=== PATIENT | female | born 1975 | race Two or more races ===

== ENCOUNTER 2025-02-14 21:43 | Emergency (ER) | payer MEDICAID, SELFPAY ==
--- NOTE | 2025-02-14 21:59 | XR_ITS ---
Examination: CTA carotids with intravenous contrast CTA brain, head with intravenous contrast. 2-D sagittal, coronal reconstructions. 3-D reconstructions. Exam date and time: February 14, 2025 1008 hrs. CTDI: vol (mGy) 11.4 DLP: (mGycm) 404 Technique: Multiple CTA axial brain, head carotid images post intravenous contrast injection 75 cc, [id number]. 2-D sagittal, coronal reconstructions. 3-D reconstructions, 3-D post processing including vascular maximum intensity projection images. Low dose protocols were performed. One or more of the following dose reduction techniques were used; automated exposure control, adjustment of the mA and/or KV according to patient size, use of iterative reconstruction technique. Findings: Multiple nodular densities in the upper lung zones, the largest in the left upper lobe is 6 mm and in the right upper lobe 8 mm No significant common carotid carotid bifurcation or internal carotid artery stenoses Mildly dominant left vertebral artery in the neck Intracranial vertebral arteries basilar artery and posterior cerebral branches do fill with no occlusions Mild calcification left juxtasellar internal carotid artery M1 segments middle cerebral arteries middle cerebral artery trifurcation vessels and anterior cerebral arteries fill Impression: No significant neck arterial stenoses No cerebral large vessel arterial occlusions Multiple nodules in the upper lung zones bilaterally, strongly recommend brain MRI MRA follow-up pre and postcontrast follow-up not only to exclude ischemic change but to exclude early cerebral metastatic disease, especially in the left temporal lobe
--- NOTE | 2025-02-14 21:59 | XR_ITS ---
Examination: AP chest single view Technique: AP portable semiupright chest single view Date and time: February 14, 2025, 1043 hrs. Indications: Stroke alert, focal neurologic deficit today Findings: Multiple soft nodular densities in the left lung, the largest in the left lower lobe 7.46 mm No aspiration pneumonia Prominent osteopenia Impression: Suspicious for multiple small nodules in the left lung, consider CT chest abdomen pelvis post contrast follow-up to assess for neoplastic disease
--- NOTE | 2025-02-14 21:59 | XR_ITS ---
Examination: CT brain head without contrast. 2-D sagittal coronal reconstructions Date and time of exam:February 14, 2025 1003 hrs. Indications: Headache today, history CVA CTDI: vol (mGy):49 DLP: (mGycm):925 Technique: Multiple CT axial sections of the brain have been obtained, 5 mm slice thickness. Contrast has not been administered. 2-D sagittal, coronal reconstructions have been obtained Low dose protocols were performed. One or more of the following dose reduction techniques were used; automated exposure control, adjustment of the mA and/or KV according to patient size, use of iterative reconstruction technique. Findings: No significant ventricular enlargement. Intra-axial or extra-axial hemorrhage density is not seen. No mass effect or midline shift Basal cisterns are not remarkable. Fourth ventricle is midline. Cranial vault intact. Impression: Negative for acute hemorrhage, mass effect or midline shift
--- NOTE | 2025-02-14 21:59 | EKG_ITS ---
[facility] Test Date: 2025-02-14 Pat Name: SCOTT KUHN Department: Room: - Gender: Female Manager Mobile: : 1975 Requested By: Eber Alvarado Order Number: [id number] Reading MD: Eber Alvarado Measurements Intervals [place] Rate: 85 P: 54 IA: 154 QRS: 76 QRSD: 97 T: 15 QT: 382 QTc: 454 Interpretive Statements SINUS RHYTHM POSSIBLE INFERIOR MYOCARDIAL INFARCTION , PROBABLY OLD [30 ms Q WAVE IN II/aVF] No previous ECG available for comparison /store/S0/[id number]/ecg/[id number].pdf
[2025-02-14 22:00] VITALS: BP 164/85; PULSE 67; RESP 18; TEMP 37.2; O2SAT 96
--- NOTE | 2025-02-14 22:00 | EDNOTE_ITS ---
ED Headache RME/HPI General Chief Complaint: Headache Stated Complaint: HEADACHE Time Seen by Provider: 02/14/25 22:00 Source: patient and family Arrival date/time: 02/14/25 21:43 Mode of arrival: ambulatory RME / HPI RME / HPI Narrative: Ms. Cowan is a 49-year-old female with past medical history of prediabetes who presented to [facility] who presented to [facility] emergency department with a chief complaint of double vision and left face numbness. Patient reported that she started having headaches about a week ago along with some swelling of her left side of her face with numbness and currently reports pain on the left side, otherwise also complains of emesis and facial pain reports it to be a sharp pain in her head. Earlier this morning complains of exacerbation of symptoms with double vision or loss of vision in her left eye. Stroke alert initiated in the ED Related Data Previous Rx's ?Medication ?Instructions ?Recorded Hydrocodone/Acetaminophen * (NORCO 1 tab PO Q4H PRN pa in #30 tabs 09/02/14 5/325 *) Allergies Allergy/AdvReac Type Severity Reaction Status Date / Time No Known Allergies Allergy Verified 02/14/25 21:44 Review of Systems Review of Systems Systems Reviewed: All systems reviewed, normal except as documented Past Medical History Past Medical History Comments PMH COMMENT: PMH: Positive for Prediabetes PSHx: None Allergies: NKDFA Social history: -Smoking: Denies -Alcohol Use: Denies -Illicit Drug Use: Denies Family History: No significant Family History ED Exam Narrative Physical exam: Physical Exam General: Awake and in no acute distress. Conversational and non-toxic appearing. HEENT: Normocephalic, atraumatic, mucous membranes moist. PERRLA Heart: Regular rate and rhythm, no murmurs. Lungs: Clear to auscultation with no wheezing or crackles. Abdomen: Soft, obese, nondistended, nontender, positive bowel sounds. ?No guarding or rebound tenderness. Neurologic: Alert and oriented x2, facial numbness, able to move all 4 extremities Extremities: No edema. Skin: No rash or ecchymoses. Course Quality Measures Suspected type of Stroke: Hemmorrhagic Last known well (date): 02/07/25 Tenecteplase given: Reason(s) TPA not given: Symptoms suggest SAH not given stroke Orders Category Date Time Status Bedside Blood Glucose NOW Care 02/14/25 21:59 Active Market Gardener NOW Care 02/14/25 21:59 Active Continuous Pulse Oximetry NOW Care 02/14/25 21:59 Completed EKG (ED ONLY) *Do not use* NOW Care 02/14/25 21:59 Completed HOB Elevated .PRN Care 02/14/25 22:24 Active In and Out Catheter NEEDED Care 02/14/25 21:59 Active Insert IV NOW Care 02/14/25 21:59 Active NIH Stroke Scale now Care 02/14/25 21:59 Active NPO NOW Care 02/14/25 21:59 Active NPO NOW Care 02/14/25 22:25 Active Neuro Check Q1HR Care 02/14/25 21:59 Active Nurse Swallow Screen x1 Care 02/14/25 21:59 Active Seizure precautions NOW Care 02/14/25 22:25 Active Consult to Neurology / Tele-Neurology Routine Cons 02/14/25 21:59 Active Diet NPO (NOW) Diet 02/14/25 22:[address] angio stroke protocol Stat Exams 02/14/25 21:[address] stroke protocol Stat Exams 02/14/25 21:59 Completed EKG (ED Only) Stat Exams 02/14/25 21:59 Draft XR chest 1V portable Stat Exams 02/14/25 21:59 Taken Alcohol, Blood Medical Stat Lab 02/14/25 21:55 Completed B-Type Natriuretic Peptide Stat Lab 02/14/25 21:55 Completed C-Reactive Protein Stat Lab 02/14/25 21:55 Completed CBC Stat Lab 02/14/25 21:55 Completed CK [Creatine Kinase] Stat Lab 02/14/25 21:55 Completed Comprehensive Metabolic Panel Stat Lab 02/14/25 21:55 Completed Drug Screen,Urine Stat Lab 02/14/25 22:20 Completed ESR [Sed Rate (ESR)] Stat Lab 02/14/25 21:55 Completed HCG Titer if Positive Stat Lab 02/14/25 21:55 Completed Lactate (Lactic Acid) Stat Lab 02/14/25 21:55 Completed Magnesium Stat Lab 02/14/25 21:55 Completed Partial Thromboplastin Time Stat Lab 02/14/25 21:55 Completed Phosphorous Stat Lab 02/14/25 21:55 Completed Procalcitonin Stat Lab 02/14/25 21:55 Completed Prothrombin Time with INR Stat Lab 02/14/25 21:55 Completed Troponin I Stat Lab 02/14/25 21:55 Completed Urinalysis, C/S if Indicated Stat Lab 02/14/25 22:20 Completed Nicardipine/Ns 20Mg Ivpb [Cardene Ivpb] Med 02/14/25 22:22 Active 20 mg in 200 ml IV 5 mg/hr Ondansetron Inj [Zofran Inj] Med 02/14/25 21:58 Active 4 mg IVP Q4HR PRN levETIRAcetam INJ [Keppra Inj] Med 02/14/25 22:28 Discontinued 1,000 mg IVP X1 ONE Oxygen Delivery NOW RT 02/14/25 21:59 Active Vital Signs Vital signs: Vital Signs Pulse Rate 67 02/14/25 22:00 Respiratory Rate 18 02/14/25 22:00 Blood Pressure 164/85 H 02/14/25 22:00 Headache MDM Narrative MDM Narrative:: #Hemorrhagic CVA 49-year-old female with prior past medical history of prediabetes presented with headache double vision and left-sided facial weakness Stroke alert called CT scan of head reviewed by teleneurology, there is concern of left temporal hemorrhage Initial review of CT head by radiology was negative, radiology read reviewed the imaging is able to visualize Possible 5 mm hemorrhage in the left temporal lobe Patient started on nicardipine drip for SBP goal 140, loading dose Keppra given and Zofran as needed for nausea vomiting Head of bed 30 degrees, neurochecks every 1 hour and maintain fingerstick 140- 160 As neurosurgery is not available at the facility, patient will be transferred to higher level of care with neurosurgery and neurosurgical ICU Pending workup otherwise CBC CMP chest x-ray urine analysis ordered 2255: Case discussed with [facility], connected to Dr. Gamboa Me neurosurgeon [facility], discussed with him the possibility of hemorrhagic CVA versus tumor on CT as documented by radiology and neurology and the need of MRI to exclude tumor, Dr. Gamboa accepted the patient for him patient will definitely need MRI to rule out a tumor to ensure the patient receives appropriate services at the facility. Patient accepted by [facility]. Case discussed with Attending Physician Dr. Sammie Alvarado MD Internal Medicine PGY-2 Disclaimer: This note was dictated by speech recognition. Minor errors in fire medic may be present due to voice recognition software. Patient data External records reviewed:: [facility] previous records and None Clinical information provided by:: patient and family Social determinants that could affect healthcare access:: none Patient has the following chronic illnesses:: Prediabetes How is presenting disease/condition affected by chronic disease/condition?: uneffected by Evaluation data The following diagnostics were reviewed and interpreted by me:: lab results, radiology exam(s) and EKG tracing(s) Lab and/or radiology exams considered but not ordered:: None Interpretation Summary: EKG shows Sinus Rhythm Rate 85 CT Head subtle low-density in the left temporal lobe with possible 5 mm hemorrhage Medications / Prescriptions Medications or Prescriptions considered but not ordered:: None Medication administrations:: Medication Administration History Nicardipine/Sodium Chloride (Cardene Ivpb) 20 mg in 200 mls @ 50 mls/hr IV .Q4H PRN; Protocol PRN Reason: PER PROTOCOL Stop: 03/16/25 22:21 Last Titration: 02/14/25 22:55 Dose: 8 mg/hr, 80 mls/hr Documented By: Titration: 02/14/25 22:50 Dose: 5.5 mg/hr, 55 mls/hr Documented By: [email or web address] Titration: 02/14/25 22:45 Dose: 3 mg/hr, 30 mls/hr Documented By: [email or web address] Titration: 02/14/25 22:40 Dose: 10 mg/hr, 100 mls/hr Documented By: [email or web address] Titration: 02/14/25 22:35 Dose: 7.5 mg/hr, 75 mls/hr Documented By: [email or web address] Admin: 02/14/25 22:30 Dose: 5 mg/hr, 50 mls/hr Documented By: [email or web address] Ondansetron HCl (Ondansetron Inj 2 Mg/Ml Inj 2 Ml) 4 mg IVP Q4HR PRN PRN Reason: NAUSEA OR VOMITING Stop: 03/16/25 21:57 Last Admin: 02/14/25 22:29 Dose: 4 mg Documented By: BETTINA Discontinued Medications Levetiracetam (Levetiracetam Inj 100 Mg/Ml Vial 5ml) 1,000 mg IVP X1 ONE Stop: 02/14/25 22:29 Last Admin: 02/14/25 22:47 Dose: 1,000 mg Documented By: BETTINA As Above Consultations Consultation(s) initiated? (list below): Yes Consultation #1 (Physician, Specialty, Details): Teleneurology, Stroke Alert Diagnosis Differential diagnosis headache: subarachnoid hemorrhage and headache Most likely diagnosis given after review of the tests above:: Hemorrhagic CVA Admission Indicated Admission indicated?: not indicated Admission Request Was there a request for admission?: No Disposition Plan Disposition Plan: Transfer Discharge Plan Prescriptions/Referrals Prescriptions/Med Rec: No Action Hydrocodone/Acetaminophen * (NORCO 5/325 *) 1 TAB tablet 1 tab PO Q4H PRN (Reason: pain) Qty: 30 0RF Problem List Clinical Impression: Cerebrovascular accident, hemorrhagic Patient/Caregiver Discharge Instructions Print Language: Barbadian
--- NOTE | 2025-02-14 22:06 | ESCONSULT_ITS ---
Tele Neuro Consultation Consultation Date 02/14/25 Consultation Narrative [facility] Tele[facility] Patient Name:???Tiff Cowan Date of :???1975 Identification Number:??? Date of Service:???02/14/2025 21:51:19 Diagnosis:?I61.9 - Intracerebral haemorrhage, unspecified Impression: 49F presents with headache and double vision and left face numbness and now trouble getting out her words with double vision.HCT shows a possible left temporal lobe edema and small area of possible hemorrhage (radiology read was normal though, ED MD to discuss with radiology). Rec MRI brain wwo to eval for possible subacute CVA vs tumor and CT C/A/P w to eval for primary tumor. Not a thrombolytic candidate 2/2 concern for ICH. ICH doesn't appear aneurysmal/vessel related but emergent vessel imaging pending (please f/u radiology read and contact NSG or Neuro IR with results). Not a thrombolytic candidate 2/2 ICH. Rec toxic metabolic infectious workup (U/A, COVID, chest xray, and UDS etc as per ED MD/primary team discretion), rec admission for ICH workup. SBP < 140/90, NSG consult, load of Keppra 1000 mg IV and then 500 mg bid. Repeat HCT in 24 hrs unless clinically worsens (repeat stat). Opiates +/- migraine cocktail which had steroid for headache. For neuropathic pains rec gabapentin 300 mg qhs and 100 mg tid prn. Recommendation: Laboratory Studies:? INR/PT ? aPTT? CBC Medications:? Hold?antiplatelet?therapy/NSAIDS/Anticoagulation ? Load with Keppra 1gm now. ? Keppra 500mg bid. Nursing Recommendations: ? Telemetry, IV Fluids?Avoid dextrose containing fluids, Maintain euglycemia ? Head of bed 30 degrees ? Neuro checks q1-2?hrs?during ICU stay ? Once stable neuro checks q4?hrs ? keep BP less than 140/90's with goal of 130/80s Consultations: ? Need Neurosurgery consultation?STAT ? Recommend Speech therapy if failed dysphagia screen ? Physical therapy/Occupational therapy DVT Prophylaxis: ? SCDs Disposition: ? Neurology will Follow Metrics: Last Known Well: Unknown Dispatch Time: 02/14/2025 21:51:19 Arrival Time: 02/14/2025 22:04:19 Initial Response Time: 02/14/2025 21:52:11Symptoms: headache and double vision and left face numbness and now trouble getting out her words. Initial patient interaction: 02/14/2025 21:50:00 NIHSS Assessment Completed: 02/14/2025 21:59:58Patient is not a candidate for Thrombolytic. Thrombolytic Medical Decision: 02/14/2025 22:00:00Patient was not deemed candidate for Thrombolytic because of following reasons: LKW outside 4.5 hr window. . Current intracranial hemorrhage . CT Head: I personally reviewed all the CT images that were available to me and it showed: left temporal vasogenic edema and small area of possible hemorrhage Primary Provider Notified of Diagnostic Impression and Management Plan on: 02/14/2025 22:19:31 History of Present Illness:Patient is a 49 year old Female. Patient was brought by private transportation with symptoms of headache and double vision and left face numbness and now trouble getting out her words. 49F presents with headache and double vision and left face numbness and now trouble getting out her words with double vision. Per daughter, has had 1 week of headaches and had 'swelling of the left face last week and then had numbness of the left face and now pain in the left. Has been having emesis and pain worsens in the left face with en laying down. Has severe sharp pain. Numbness started and last 3 days worse, Now today on the left has double vision or can't see at all. Past Medical History: ?Migraine Headaches ?There is no history of Stroke ?There is no history of Seizures Other PMH:? chronic headaches Medications: No Anticoagulant use? No Antiplatelet use Reviewed EMR for current medications Allergies:? Reviewed Social History: Smoking: No Alcohol Use: No Drug Use: No Family History: There is no family history of premature cerebrovascular disease pertinent to this consultation ROS : 14 Points Review of Systems was performed and was negative except mentioned in HPI. Past Surgical History: There Is No Surgical History Contributory To Today?s Visit Examination: BP(164/85),?Pulse(67),?Blood Glucose(128) 1A: Level of Consciousness - Alert; keenly responsive?+ 0 1B: Ask Month and Age - Both Questions Right?+ 0 1C: Blink Eyes & Squeeze Hands - Performs Both Tasks?+ 0 2: Test Horizontal Extraocular Movements - Partial Gaze Palsy: Can Be Overcome?+ 1 3: Test Visual Condon - No Visual Loss?+ 0 4: Test Facial Palsy (Use Grimace if Obtunded) - Normal symmetry?+ 0 5A: Test Left Arm Motor Drift - No Drift for 10 Seconds?+ 0 5B: Test Right Arm Motor Drift - No Drift for 10 Seconds?+ 0 6A: Test Left Leg Motor Drift - No Drift for 5 Seconds?+ 0 6B: Test Right Leg Motor Drift - No Drift for 5 Seconds?+ 0 7: Test Limb Ataxia (FNF/Heel-Francis) - No Ataxia?+ 0 8: Test Sensation - Normal; No sensory loss?+ 0 9: Test Language/Aphasia - Normal; No aphasia?+ 0 10: Test Dysarthria - Normal?+ 0 11: Test Extinction/Inattention - No abnormality?+ 0 NIHSS Score:?1 ICH Score: 0 NIHSS Text :?dysconjugate gaze Maryjane Coma Score:13-15 (0) Age >= 80:No (0) ICH volume >= 30mL:No (0) Intraventricular hemorrhage:No (0) Infratentorial origin of hemorrhage:No (0) Pre-Morbid Modified Hernandez Scale: 0 Points = No symptoms at all This consult was conducted in real time using interactive audio and video technology. Patient was informed of the technology being used for this visit and agreed to proceed. Patient located in hospital and provider located at home/office setting. Due to the immediate potential for life-threatening deterioration due to underlying acute neurologic illness, I spent 30 minutes providing critical care. This time includes time for face to face visit via telemedicine, review of medical records, imaging studies and discussion of findings with providers, the patient and/or family. Dr Sarah Cote [facility] For Inpatient follow-up with [facility] physician please call [facility] at . As we are not an outpatient service for any post hospital discharge needs please contact the hospital for assistance. If you have any questions for the [facility] physicians or need to reconsult for clinical or diagnostic changes please contact us via [facility] at . Signature :Carmenza Cote
[2025-02-14 22:13] LABS: Lactate (Lactic Acid) 1.2 mMol/L (0.4-2.0)
[2025-02-14 22:20] LABS: Basophils # (Auto) 0.1 Thou/mm3 (0.0-0.2); Basophils % (Auto) 1 % (0-2.5); Eosinophils # (Auto) 0.1 Thou/mm3 (0.0-0.5); Eosinophils % (Auto) 1 % (0-10); Hematocrit 40.8 % (36.0-46.0); Hemoglobin 13.6 g/dL (12.0-16.0); Immature Granulocytes Auto 0.05 Thou/mm3 (0.00-0.00); Lymphocytes # (Auto) 2.6 Thou/mm3 (1.0-4.8); Lymphocytes % (Auto) 19 % (10-50); Mean Corpuscular HGB Conc 33.3 g/dl (31.0-37.0); Mean Corpuscular Hemoglobin 30.0 pg (25.0-35.0); Mean Corpuscular Volume 90 fL (80-100); Monocytes # (Auto) 1.0 Thou/mm3 (0.0-0.8); Monocytes % (Auto) 7 % (0-12); Neutrophils # (Auto) 9.9 Thou/mm3 (1.8-7.7); Neutrophils % (Auto) 72 % (37-80); Nucleated Red Blood Cell # 0.00 Thou/mm3 (0.00-0.00); Nucleated Red Blood Cell % 0 /100 WBC (0); Platelet Count 383 Thou/mm3 (140-440); RDW Standard Deviation 42.5 fL (36.4-46.3); Red Blood Count 4.53 Miln/mm3 (4.00-5.20); White Blood Count 13.8 Thou/mm3 (3.6-11.0)
[2025-02-14 22:28] LABS: Collection Type, Urine Clean Catch
[2025-02-14] MEDS: ONDANSETRON INJ 2 MG/ML INJ 2 ML 4 MG IVP (22:29)
[2025-02-14 22:30] VITALS: BP 156/87; PULSE 79
[2025-02-14 22:30] LABS: HCG Titer if Positive Negative
[2025-02-14] MEDS: NICARDIPINE/NS 20MG IVPB 20 MG/200 ML BAG 50 MG IV (22:30)
[2025-02-14 22:34] VITALS: BMI 31.1
[2025-02-14 22:35] LABS: INR 1.0 (0.9-1.3); Partial Thromboplastin Time 25.1 Seconds (22.0-36.0); Prothrombin Time 11.0 Seconds (9.0-12.2)
[2025-02-14 22:36] LABS: Sed Rate (ESR) 60 mm/hr (0-30)
[2025-02-14 22:36] LABS: Bilirubin,Urine Negative (Negative); Blood,Urine Negative (Negative); Clarity,Urine Clear (Clear/Hazy); Color,Urine Colorless (Lt Yel-Yel); Culture Indicated,Urine Not Indicated; Glucose, Urine Negative (Negative); Ketones,Urine Negative (Negative); Leukocyte Esterase,Urine Negative (Negative); Nitrite,Urine Negative (Negative); PH,Urine 6.5 (5.0-7.0); Protein,Urine Negative (Neg - Trace); RBC,Urine 1 /hpf (0-3); Specific Gravity,Urine 1.026 (1.001-1.035); Squamous Epithelial Cell,Urine 2 /hpf (0-5); Urobilinogen,Urine Negative mg/dL (0.0-1.0); WBC,Urine 3 /hpf (0-5)
[2025-02-14 22:38] LABS: B-Type Natriuretic Peptide 46 pg/mL (0-100)
[2025-02-14 22:43] LABS: Amphetamine/Methamp Scrn,U Negative (Negative); Barbiturate Screen,Urine Negative (Negative); Benzodiazepines Screen,Urine Negative (Negative); Benzoylecgonine Screen, Ur Negative (Negative); Fentanyl Screen,Urine Negative (Negative); Opiate Screen,Urine Negative (Negative); THC Screen,Urine Negative (Negative)
[2025-02-14] MEDS: levETIRAcetam INJ 100 MG/ML VIAL 5ML 1000 MG IVP (22:47)
[2025-02-14 22:53] LABS: Alanine Aminotransferase 44 U/L (10-49); Albumin, Serum 4.6 gm/dL (3.5-5.0); Albumin/Globulin Ratio 1.4 (1.2-2.2); Alcohol, Blood Medical < 3.0 mg/dL (0-10.0); Alkaline Phosphatase 389 U/L (46-116); Anion Gap 11 (7-16); Aspartate Amino Transferase 32 U/L (0-34); BUN/Creatinine Ratio 10 Ratio (12-20); Bilirubin,Total 0.4 mg/dL (0.3-1.2); Blood Urea Nitrogen 7 mg/dL (9-23); C-Reactive Protein 0.6 mg/dL (0.0-0.9); Calcium 9.6 mg/dL (8.3-10.6); Calcium (Corrected) 9.6 mg/dL (8.5-10.1); Carbon Dioxide 26.5 mMol/L (20.0-31.0); Chloride 106 mMol/L (98-107); Creatine Kinase 62 U/L (34-171); Creatinine (Component) 0.7 mg/dL (0.6-1.3); Estimated Creatinine Clearance 88.0 mL/min (>60); Globulin 3.4 gm/dL (2.3-3.5); Glucose 119 mg/dL (74-106); Magnesium 2.0 mg/dL (1.6-2.6); Osmolality,Calculated 283 (275-295); Phosphorous 3.6 mg/dL (2.4-5.1); Potassium 3.6 mMol/L (3.4-5.1); Procalcitonin 0.07 ng/ml (0.0-0.49); Sodium 143 mMol/L (136-145); Total Protein 8.0 gm/dL (5.7-8.2); Troponin I < 0.002 ng/mL (0.0-0.045); eGFR > 60 See Note
[2025-02-14 23:03] VITALS: BP 151/82; PULSE 105; RESP 18; TEMP 37.1; O2SAT 98
--- NOTE | 2025-02-14 23:04 | PC.NURSE ---
2301, accepted to [facility] , ed to ed, report #[phone], spoke to rachna
== END 2025-02-14 23:34 | disposition short-term general hospital (02) ==
PROVIDERS: Emergency Provider Emergency Medicine
DX: I62.9 Nontraumatic intracranial hemorrhage, unspecified (principal); R29.810 Facial weakness; R29.700 NIHSS score 0; Z75.1 Person awaiting admission to adequate facility elsewhere
CPT/HCPCS: 36415; 70450; 70496; 70498; 71045; 80053; 80307; 80320; 81001; 82550; 83605; 83735; 83880; 84100; 84145; 84484; 84703; 85025; 85610; 85652; 85730; 86140; 93005; 96365; 96374; 96375; 99285; A4649; J1953; J2404; J2405; Q9967; G0480

== ENCOUNTER 2025-04-03 16:01 | Emergency (ER) | payer MEDICAID, SELFPAY ==
--- NOTE | 2025-04-03 16:18 | PD.EDWEAK ---
ED Weakness RME/HPI General Chief complaint: Weakness Stated complaint: Nausea, feels faint, CA tx, dizzy Arrival date/time: 04/03/25 16:01 Related Data Previous Rx's ?Medication ?Instructions ?Recorded Hydrocodone/Acetaminophen * (NORCO 1 tab PO Q4H PRN pain #30 tabs 09/02/14 5/325 *) Allergies Allergy/AdvReac Type Severity Reaction Status Date / Time No Known Allergies Allergy Verified 04/03/25 16:07 Discharge Plan Prescriptions/Referrals Prescriptions/Med Rec: No Action Hydrocodone/Acetaminophen * (NORCO 5/325 *) 1 TAB tablet 1 tab PO Q4H PRN (Reason: pain) Qty: 30 0RF Patient/Caregiver Discharge Instructions Print Language: Swedish
--- NOTE | 2025-04-03 16:26 | PC.NURSE ---
Pt did not answer when name was called in the lobby and was not found outside.
--- NOTE | 2025-04-03 16:46 | PD.EDADDENDU ---
Emergency Room Addendum Addendum Narrative: When I looked for the patient to start my evaluation, I was told the patient eloped. Otoniel Cochran MD
--- NOTE | 2025-04-03 18:24 | PC.NURSE ---
NO ANSWER [id number]
== END 2025-04-03 18:24 | disposition left against medical advice (07) ==
PROVIDERS: Emergency Provider Emergency Medicine
DX: Z53.21 Procedure and treatment not carried out due to patient leaving prior to being seen by health care provider (principal)
CPT/HCPCS: 99281